=== PATIENT | female | born 1945 | race Asian ===

== ENCOUNTER 2022-09-23 17:02 | Inpatient (IN) | payer MEDICARE, MEDICAID ==
[~2022-09-23] VITALS: Ht 167.6 cm; Wt 42.2 kg
[2022-09-23] MEDS ORDERED: ASPIRIN 81MG TABLET PO ONE (17:15)
[2022-09-23 17:49] LABS: BASOPHILS % 0.4 % (0.0-2.0); HEMATOCRIT. 44.7 % (36.0-48.0); HEMOGLOBIN. 14.6 g/dL (12.0-16.0); LYMPHOCYTES % 14.5 % (20.0-50.0); MEAN CORPUSCULAR VOLUME 94.8 fL (81.0-99.0); MEAN PLATELET VOLUME 7.7 fl (7.4-10.4); MONOCYTES % 7.7 % (2.0-8.0); NEUTROPHILS % 76.4 % (40.0-76.0); PLATELET 245 x1000/uL (130-400); RED BLOOD CELL COUNT 4.72 mill/uL (4.2-5.4); RED CELL DISTRIBUTION WIDTH 14.1 % (11.6-14.6)
[2022-09-23 17:58] LABS: CHLORIDE 103 mEq/L (98-107)
[2022-09-23] MEDS ORDERED: HEPARIN 25,000 UNITS PREMIX 250 ML IV PRN (20:45)
[2022-09-23] MEDS ORDERED: HEPARIN 5000 UNITS/ML VIAL IV SCH (20:45)
[2022-09-23] MEDS ORDERED: HEPARIN 5000 UNITS/ML VIAL IV PRN ×2 (20:45)
[2022-09-23] MEDS ORDERED: CLONIDINE 0.1MG TABLET PO PRN (21:00)
[2022-09-23] MEDS ORDERED: ACETAMINOPHEN 325MG TABLET PO PRN (21:00)
[2022-09-23 21:13] LABS: INR 1.1; PARTIAL THROMBOPLASTIN TIME 28.1 sec (23.4-31.0); PROTHROMBIN TIME 11.4 sec (9.6-11.0)
[2022-09-23] MEDS ORDERED: DEXTROSE 50% WATER 50ML SYRINGE IV PRN (21:30)
[2022-09-23 21:47] LABS: BASOPHILS % 0.2 % (0.0-2.0); EOSINOPHILS % 0.6 % (0.0-5.0); HEMATOCRIT. 39.1 % (36.0-48.0); HEMOGLOBIN. 12.9 g/dL (12.0-16.0); LYMPHOCYTES % 8.2 % (20.0-50.0); MEAN CORPUSCULAR HEMOGLOBIN 30.5 pg (28.0-32.0); MEAN CORPUSCULAR VOLUME 92.7 fL (81.0-99.0); MEAN PLATELET VOLUME 7.7 fl (7.4-10.4); PLATELET 243 x1000/uL (130-400); RED BLOOD CELL COUNT 4.22 mill/uL (4.2-5.4); RED CELL DISTRIBUTION WIDTH 13.9 % (11.6-14.6)
[2022-09-23] MEDS ORDERED: GUAIFENESIN 200MG/10ML SUGAR FREE UDC PO PRN (22:00)
[2022-09-23] MEDS ORDERED: ASPIRIN 325MG EC TABLET PO NR (22:00)
[2022-09-23] MEDS ORDERED: MAGNESIUM/ALUMINUM HYDROXIDE/SIMETHICONE 30ML UDC PO PRN (22:00)
[2022-09-23] MEDS ORDERED: IPRATROPIUM/ALBUTEROL 0.5-3(2.5)MG/3ML NEB HHN PRN (22:00)
[2022-09-23] MEDS ORDERED: ONDANSETRON HCL 4MG/2ML INJ IV PRN (22:00)
[2022-09-23] MEDS ORDERED: DOCUSATE SODIUM 100MG CAPSULE PO PRN (22:00)
[2022-09-23] MEDS: BLOOD SUGAR DIAGNOSTIC STRIP TEST SCH (22:07)
[2022-09-23 22:29] LABS: PHOSPHORUS 3.4 mg/dL (2.5-4.9)
[2022-09-23] MEDS: INSULIN LISPRO 100 UNITS/ML SUBCUT SCH (23:00)
[2022-09-24] VITALS (8 sets, daily range): BP systolic 130–169; BP diastolic 57–90
[2022-09-24 01:23] LABS: CREATINE KINASE 539 IU/L (26-192); CREATINE KINASE MB FRACTION 47.9 ng/mL (0.5-3.6)
[2022-09-24 05:23] LABS: BASOPHILS % 0.5 % (0.0-2.0); HEMOGLOBIN. 13.8 g/dL (12.0-16.0); LYMPHOCYTES % 12.3 % (20.0-50.0); MEAN CORPUSCULAR VOLUME 92.1 fL (81.0-99.0); MEAN PLATELET VOLUME 7.5 fl (7.4-10.4); MONOCYTES % 9.3 % (2.0-8.0); NEUTROPHILS % 76.9 % (40.0-76.0); PLATELET 244 x1000/uL (130-400); RED BLOOD CELL COUNT 4.45 mill/uL (4.2-5.4); RED CELL DISTRIBUTION WIDTH 13.7 % (11.6-14.6)
[2022-09-24 05:31] LABS: CHLORIDE 104 mEq/L (98-107)
[2022-09-24 05:53] LABS: CREATINE KINASE 500 IU/L (26-192); CREATINE KINASE MB FRACTION 45.7 ng/mL (0.5-3.6); HDL CHOLESTEROL 67 mg/dL (40-59); LDL CHOLESTEROL 32 mg/dL (5-100); PHOSPHORUS 3.6 mg/dL (2.5-4.9); T4 FREE 1.23 ng/dL (0.76-1.46)
[2022-09-24] MEDS ORDERED: ENOXAPARIN 40MG/0.4ML SYR SUBCUT SCH (09:00)
[2022-09-24] MEDS ORDERED: CARB-32 PO (10:54)
[2022-09-24] MEDS ORDERED: LOSA50TA41 PO (10:54)
[2022-09-24] MEDS ORDERED: DONE-51 MT (10:54)
[2022-09-24] MEDS ORDERED: MEMA5TAB42 MT (10:54)
[2022-09-24] MEDS ORDERED: SIMV5TAB58 MT (10:54)
[2022-09-24] MEDS ORDERED: METF500S9 PO (10:54)
[2022-09-24] MEDS: PANTOPRAZOLE SODIUM 40 MG/VIAL IV SCH (12:17)
[2022-09-24] MEDS: ENOXAPARIN 40MG/0.4ML SYR SUBCUT SCH (12:20)
[2022-09-24] MEDS: BLOOD SUGAR DIAGNOSTIC STRIP TEST SCH ×3 (12:30→21:00)
[2022-09-24 12:57] LABS: CREATINE KINASE MB FRACTION 39.4 ng/mL (0.5-3.6)
[2022-09-24] MEDS ORDERED: HEPARIN 1000 UNITS/ML 10ML ONE (13:00)
[2022-09-24] MEDS ORDERED: IODIXANOL 320MG/ML 100 ML BOTTLE IV ONE (13:00)
[2022-09-24] MEDS ORDERED: LIDOCAINE HCL/PF 1% 10 MG/ML 5ML VIAL ONE (13:00)
[2022-09-24] MEDS ORDERED: DIPHENHYDRAMINE 50MG/ML VIAL ONE (13:00)
[2022-09-24] MEDS ORDERED: VERAPAMIL HCL 2.5 MG/1 ML 2ML VIAL IV ONE (13:00)
[2022-09-24] MEDS: INSULIN LISPRO 100 UNITS/ML SUBCUT SCH ×4 (13:00→22:15)
[2022-09-24] MEDS: CARBIDOPA/LEVODOPA 25/100MG TABLET PO SCH ×2 (15:10→22:00)
[2022-09-25] VITALS (15 sets, daily range): BP systolic 107–183; BP diastolic 56–123
[2022-09-25] MEDS: CARBIDOPA/LEVODOPA 25/100MG TABLET PO SCH ×3 (06:14→23:36)
[2022-09-25] MEDS: CLONIDINE 0.1MG TABLET PO PRN (06:30)
[2022-09-25] MEDS: BLOOD SUGAR DIAGNOSTIC STRIP TEST SCH ×4 (07:30→23:35)
[2022-09-25 07:46] LABS: BASOPHILS % 0.3 % (0.0-2.0); EOSINOPHILS % 0.4 % (0.0-5.0); HEMATOCRIT. 38.6 % (36.0-48.0); HEMOGLOBIN. 13.2 g/dL (12.0-16.0); LYMPHOCYTES % 7.7 % (20.0-50.0); MEAN CORPUSCULAR HEMOGLOBIN 31.3 pg (28.0-32.0); MEAN CORPUSCULAR VOLUME 91.5 fL (81.0-99.0); MEAN PLATELET VOLUME 8.5 fl (7.4-10.4); MONOCYTES % 6.2 % (2.0-8.0); NEUTROPHILS % 85.4 % (40.0-76.0); PLATELET 227 x1000/uL (130-400); RED BLOOD CELL COUNT 4.21 mill/uL (4.2-5.4); RED CELL DISTRIBUTION WIDTH 13.8 % (11.6-14.6)
[2022-09-25 07:56] LABS: CHLORIDE 101 mEq/L (98-107)
[2022-09-25 08:04] LABS: PHOSPHORUS 2.8 mg/dL (2.5-4.9)
[2022-09-25] MEDS: PANTOPRAZOLE SODIUM 40 MG/VIAL IV SCH (08:41)
[2022-09-25] MEDS: INSULIN LISPRO 100 UNITS/ML SUBCUT SCH ×4 (08:41→23:34)
[2022-09-25] MEDS: ENOXAPARIN 40MG/0.4ML SYR SUBCUT SCH (08:41)
[2022-09-25] MEDS: ASPIRIN 81MG TABLET PO SCH (16:46)
[2022-09-25] MEDS: CLOPIDOGREL 75MG TABLET PO SCH (16:46)
[2022-09-26] VITALS (14 sets, daily range): BP systolic 120–159; BP diastolic 59–95
[2022-09-26] MEDS: CARBIDOPA/LEVODOPA 25/100MG TABLET PO SCH ×2 (06:29→14:26)
[2022-09-26] MEDS: BLOOD SUGAR DIAGNOSTIC STRIP TEST SCH ×4 (07:47→21:00)
[2022-09-26] MEDS: INSULIN LISPRO 100 UNITS/ML SUBCUT SCH ×4 (07:48→21:00)
[2022-09-26] MEDS: ASPIRIN 81MG TABLET PO SCH (09:21)
[2022-09-26] MEDS: CLOPIDOGREL 75MG TABLET PO SCH (09:21)
[2022-09-26] MEDS: ENOXAPARIN 40MG/0.4ML SYR SUBCUT SCH (09:21)
[2022-09-26] MEDS: FAMOTIDINE 20MG/2ML VIAL IV SCH (09:25)
[2022-09-27] VITALS (9 sets, daily range): BP systolic 127–159; BP diastolic 39–98
[2022-09-27] MEDS: CARBIDOPA/LEVODOPA 25/100MG TABLET PO SCH (00:22)
[2022-09-27] MEDS: BLOOD SUGAR DIAGNOSTIC STRIP TEST SCH ×2 (07:30→13:25)
[2022-09-27] MEDS: CLONIDINE 0.1MG TABLET PO PRN (10:04)
[2022-09-27] MEDS: ASPIRIN 81MG TABLET PO SCH (10:05)
[2022-09-27] MEDS: CLOPIDOGREL 75MG TABLET PO SCH (10:05)
[2022-09-27] MEDS: ENOXAPARIN 40MG/0.4ML SYR SUBCUT SCH (10:07)
[2022-09-27] MEDS: INSULIN LISPRO 100 UNITS/ML SUBCUT SCH ×2 (10:09→14:04)
[2022-09-27] MEDS: FAMOTIDINE 20MG/2ML VIAL IV SCH (10:15)
[2022-09-27 11:35] LABS: BASOPHILS % 0.5 % (0.0-2.0); EOSINOPHILS % 1.1 % (0.0-5.0); HEMATOCRIT. 39.6 % (36.0-48.0); HEMOGLOBIN. 13.1 g/dL (12.0-16.0); LYMPHOCYTES % 16.2 % (20.0-50.0); MEAN CORPUSCULAR HEMOGLOBIN 30.7 pg (28.0-32.0); MEAN CORPUSCULAR VOLUME 92.8 fL (81.0-99.0); MEAN PLATELET VOLUME 7.8 fl (7.4-10.4); MONOCYTES % 8.2 % (2.0-8.0); PLATELET 241 x1000/uL (130-400); RED BLOOD CELL COUNT 4.27 mill/uL (4.2-5.4); RED CELL DISTRIBUTION WIDTH 14.2 % (11.6-14.6)
[2022-09-27 11:40] LABS: CHLORIDE 107 mEq/L (98-107)
[2022-09-27] MEDS ORDERED: PEPJ2 IV (16:16)
[2022-09-27] MEDS ORDERED: CLOP-31 PO (16:16)
== END 2022-09-27 18:23 | disposition home health service (06) | DRG 64 ==
LOC: ER 17:02 → MICUSO 20:02 → EDBEDREQ 20:18 → ENRESERV 23:57 → EDBEDREQSVC 23:58 → 5EST 09-24 10:03
PROVIDERS: ADMIT Internal Medicine; ATTEND Internal Medicine
DX: I63.9 Cerebral infarction, unspecified (principal); E11.00 Type 2 diabetes mellitus with hyperosmolarity without nonketotic hyperglycemic-hyperosmolar coma (NKHHC); I21.4 Non-ST elevation (NSTEMI) myocardial infarction; G82.50 Quadriplegia, unspecified; I50.43 Acute on chronic combined systolic (congestive) and diastolic (congestive) heart failure; E87.1 Hypo-osmolality and hyponatremia; E87.20 Acidosis, unspecified; G20 Parkinson's disease; I11.0 Hypertensive heart disease with heart failure; I48.91 Unspecified atrial fibrillation; I25.10 Atherosclerotic heart disease of native coronary artery without angina pectoris; G40.909 Epilepsy, unspecified, not intractable, without status epilepticus; Z20.822 Contact with and (suspected) exposure to COVID-19; I08.3 Combined rheumatic disorders of mitral, aortic and tricuspid valves; I16.0 Hypertensive urgency; R13.10 Dysphagia, unspecified; R29.6 Repeated falls; R47.1 Dysarthria and anarthria; R74.01 Elevation of levels of liver transaminase levels; F02.80 Dementia in other diseases classified elsewhere, unspecified severity, without behavioral disturbance, psychotic disturbance, mood disturbance, and anxiety; R47.01 Aphasia; Z79.82 Long term (current) use of aspirin; Z95.0 Presence of cardiac pacemaker; Z82.49 Family history of ischemic heart disease and other diseases of the circulatory system; Z95.818 Presence of other cardiac implants and grafts; Z88.0 Allergy status to penicillin; Z79.899 Other long term (current) drug therapy
CPT/HCPCS: 36415; 70544; 70547; 70551; 71045; 80048; 80053; 80061; 82550; 82553; 82962; 83036; 83605; 83735; 83880; 84100; 84145; 84439; 84443; 84484; 85025; 85379; 87426; 93005; 93306; 93880; 93970; 97162; 97165; 99285; C9113; J1200; J1644; J1650; J1815; J3490; Q9967